=== PATIENT | male | born 1980 | race African-American/Black ===

== ENCOUNTER 2017-12-18 11:31 | Emergency (ER) | payer OTHER ==
[~2017-12-18] VITALS: Ht 190.5 cm; Wt 84.5 kg
[2017-12-18 11:35] VITALS: BP 130/70
== END 2017-12-18 17:00 | disposition left against medical advice (07) ==
LOC: ER 11:31
DX: Z53.21 Procedure and treatment not carried out due to patient leaving prior to being seen by health care provider (principal)

== ENCOUNTER 2020-01-18 02:52 | Emergency (ER) | payer OTHER ==
[~2020-01-18] VITALS: Ht 190.5 cm; Wt 90.0 kg
[2020-01-18 03:12] VITALS: BP 120/76
[2020-01-18] MEDS ORDERED: CEFTRIAXONE SODIUM 250 MG/VIAL IM ONE (04:00)
[2020-01-18] MEDS ORDERED: LIDOCAINE HCL 1% 20ML VIAL (Pyxis) INJ INFIL ONE (04:00)
[2020-01-18] MEDS ORDERED: AZITHROMYCIN 500 MG TABLET PO ONE (04:00)
[2020-01-18 04:27] LABS: CLARITY URINE CLEAR (CLEAR); COLOR URINE YELLOW (YELLOW); KETONES URINE TRACE (NEGATIVE); LEUKOCYTE ESTERASE URINE NEGATIVE (NEGATIVE); NITRITE URINE NEGATIVE (NEGATIVE); OCCULT BLOOD URINE NEGATIVE (NEGATIVE); PROTEIN URINE TRACE (NEGATIVE); SPECIFIC GRAVITY URINE 1.029 (1.005-1.030); UROBILINOGEN URINE 0.2 E.U./dL (0.2-1.0)
== END 2020-01-18 04:42 | disposition home or self-care (01) ==
LOC: ER 02:52
DX: A64 Unspecified sexually transmitted disease (principal)
CPT/HCPCS: 81003; 96372; 99283; J0696; J3490